=== PATIENT | female | born 1960 | race Caucasian/White ===

== ENCOUNTER 2018-08-17 09:00 | Inpatient (IN) | payer OTHER ==
[~2018-08-17] VITALS: Ht 162.6 cm; Wt 45.8 kg
[2018-08-24] MEDS ORDERED: CEFAZOLIN 1 GM IVPB PREMIX 50 ML IV ONE (07:00)
[2018-08-24] MEDS ORDERED: CEL250 PO (10:57)
[2018-08-24] MEDS ORDERED: OMEP10SU2 PO (10:57)
[2018-08-24] MEDS ORDERED: TACR0.5C PO (10:57)
[2018-08-24] MEDS ORDERED: PRED5TAB PO (10:57)
[2018-08-24] MEDS ORDERED: SERT50TA PO (10:57)
[2018-08-24] MEDS ORDERED: METO50TA7 PO (10:57)
[2018-08-24] MEDS ORDERED: AMLO5TAB4 PO (10:57)
[2018-08-24] MEDS ORDERED: LIP20 PO (10:59)
[2018-08-24] MEDS ORDERED: PROPOFOL 200MG/ 20ML VIAL (DIPRIVAN) IV ONE (12:15)
[2018-08-24] MEDS ORDERED: NS 1000 ML IV.SOLN IV ONE (12:15)
[2018-08-24] MEDS ORDERED: DEXTROSE 50% JECT 50 ML DISP.SYRIN IVP ONE (12:15)
[2018-08-24] MEDS ORDERED: fentaNYL CITRATE/PF 100 MCG/2 ML AMP IVP ONE (12:15)
[2018-08-24] MEDS ORDERED: MIDAZOLAM HCL 5 MG/5 ML VIAL IVP ONE (12:15)
[2018-08-24] MEDS ORDERED: HYDROCORTISONE SOD SUCC 100 MG/2 ML VIAL IVP ONE (12:15)
[2018-08-24] MEDS ORDERED: SEVOFLURANE 15 MIN GAS INH ONE (12:15)
[2018-08-24] MEDS ORDERED: LR 1,000 ML IV.SOLN IV ONE (12:15)
[2018-08-24] MEDS ORDERED: ROCURONIUM BROMIDE 10 MG/ML (ZEMURON) IV ONE (12:15)
[2018-08-24] MEDS ORDERED: BUPIVACAINE /EPINEPHRINE/PF 0.5% 30 ML VIAL INJ ONE (12:15)
[2018-08-24] MEDS ORDERED: CLINDAMYCIN 2% VAGINAL CREAM VG ONE (12:15)
[2018-08-24] MEDS ORDERED: NS IRRIG SOLN 1000 ML IR ONE (12:15)
[2018-08-24] MEDS ORDERED: HYDROCORTISONE SOD SUCC 250 MG/2 ML ONE (12:51)
[2018-08-24] MEDS ORDERED: LR 500 ML IV ONE (13:22)
[2018-08-24] MEDS ORDERED: FENT2mCg/mL-ROPIVA0.2%/NS EPID 200 ML EP SCH (13:30)
[2018-08-24] MEDS ORDERED: fentaNYL CITRATE/PF 100 MCG/2 ML AMP IVP PRN ×2 (13:30)
[2018-08-24] MEDS ORDERED: POLYMYXIN 500,000/BACIT.10,000 UNITS in NS IRR 1 L IR ONE (15:00)
[2018-08-24] MEDS ORDERED: METOCLOPRAMIDE HCL 10 MG/2 ML VIAL IVP ONE (18:00)
[2018-08-24] MEDS ORDERED: METOCLOPRAMIDE HCL 10 MG/2 ML VIAL ONE (18:03)
[2018-08-24 18:30] VITALS: BP_SYST 104
[2018-08-24 19:30] VITALS: BP_SYST 117
[2018-08-24] MEDS: PROGRAF 0.5 MG PO SCH (20:00)
[2018-08-24 20:15] VITALS: BP_SYST 101
[2018-08-24] MEDS: CELLCEPT 250 MG PO SCH (21:00)
[2018-08-24] MEDS: ceFAZolin SODIUM 1 GM in D5W 50 ML IV SCH (21:04)
[2018-08-24] MEDS: KCL 10 mEq in D5/0.45NS 1000mL 1,000 ML IV SCH (21:04)
[2018-08-24] MEDS: SIMETHICONE 80 MG TAB.CHEW PO SCH (21:10)
[2018-08-24] MEDS: LIPITOR 20 MG PO SCH (23:00)
[2018-08-24] MEDS: ZOLOFT 50 MG PO SCH (23:00)
[2018-08-24 23:35] VITALS: BP_SYST 120
[2018-08-25] MEDS: ceFAZolin SODIUM 1 GM in D5W 50 ML IV SCH ×3 (05:29→22:23)
[2018-08-25] MEDS ORDERED: HYDROCORTISONE SOD SUCC 100 MG/2 ML VIAL IVP ONE (06:15)
[2018-08-25 07:12] LABS: ALBUMIN 2.3 g/dL (3.4-4.8); CALCIUM 7.2 mg/dL (8.4-11.0); CREATININE 0.92 mg/dL (0.55-1.30); POTASSIUM 4.1 mmol/L (3.5-5.1); TOTAL BILIRUBIN 0.5 mg/dL (0.0-1.0)
[2018-08-25 08:00] VITALS: BP_SYST 120
[2018-08-25 08:33] LABS: HEMATOCRIT 31.5 % (36-48); HEMOGLOBIN 10.4 g/dL (12.0-16.0); RED BLOOD CELL COUNT(AUTO) 3.62 MIL/uL (4.2-6.2); WHITE BLOOD COUNT (AUTO) 9.2 K/uL (4.8-10.8)
[2018-08-25 08:34] LABS: BASOPHILS % (AUTO) 0.2 % (0.0-2.0); EOSINOPHILS % (AUTO) 0.1 % (0.0-4.0); LYMPHOCYTES % (AUTO) 4.5 % (20.5-51.5); MEAN CORPUSCULAR HEMOGLOBIN 29 pg (27-31); MEAN CORPUSCULAR HGB CONC 33 % (32-36); MEAN CORPUSCULAR VOLUME 87 fL (79.0-98.0); MONOCYTES % (AUTO) 6.1 % (1.7-9.3); NEUTROPHILS # (AUTO) 8.2 K/uL (1.8-7.7); NEUTROPHILS % (AUTO) 89.1 % (40.0-70.0); PLATELET COUNT (AUTO) 205 K/uL (130-430); RED CELL DISTRIBUTION WIDTH 13.9 % (9.0-15.0)
[2018-08-25 08:35] LABS: LYMPHOCYTES # (AUTO) 0.4 K/uL (1.0-5.5); MONOCYTES # (AUTO) 0.6 K/uL (0.0-1.0)
[2018-08-25] MEDS: SIMETHICONE 80 MG TAB.CHEW PO SCH ×4 (09:00→21:00)
[2018-08-25] MEDS: CELLCEPT 250 MG PO SCH ×4 (09:48→21:00)
[2018-08-25] MEDS: KCL 10 mEq in D5/0.45NS 1000mL 1,000 ML IV SCH ×3 (09:48→22:22)
[2018-08-25] MEDS: NORVASC 5 MG PO SCH (09:49)
[2018-08-25] MEDS: TOPROL 50 MG PO SCH (09:50)
[2018-08-25] MEDS: PROGRAF 0.5 MG PO SCH ×2 (09:52→20:00)
[2018-08-25] MEDS: PRILOSEC 40 MG PO SCH (09:53)
[2018-08-25] MEDS: PREDNISONE 5 MG TABLET PO SCH (09:53)
[2018-08-25] MEDS: ONDANSETRON HCL 4 MG/2 ML VIAL IVP PRN (11:17)
[2018-08-25] MEDS: OXYCODONE/ACETAMINOPHEN 5-325 TABLET PO PRN ×2 (11:17→20:31)
[2018-08-25 12:47] VITALS: BP_SYST 135
[2018-08-25 16:02] VITALS: BP_SYST 129
[2018-08-25 20:00] VITALS: BP_SYST 123
[2018-08-25] MEDS: LIPITOR 20 MG PO SCH (22:29)
[2018-08-25] MEDS: ZOLOFT 50 MG PO SCH (22:29)
[2018-08-25 23:47] VITALS: BP_SYST 126
[2018-08-26] MEDS: OXYCODONE/ACETAMINOPHEN 5-325 TABLET PO PRN ×4 (04:36→21:33)
[2018-08-26] MEDS: ceFAZolin SODIUM 1 GM in D5W 50 ML IV SCH ×3 (06:31→21:04)
[2018-08-26 07:49] VITALS: BP_SYST 124
[2018-08-26] MEDS: KCL 10 mEq in D5/0.45NS 1000mL 1,000 ML IV SCH ×2 (08:12→20:16)
[2018-08-26] MEDS: SIMETHICONE 80 MG TAB.CHEW PO SCH ×4 (08:13→20:17)
[2018-08-26] MEDS: TOPROL 50 MG PO SCH (09:00)
[2018-08-26] MEDS: PROGRAF 0.5 MG PO SCH ×2 (09:00→20:27)
[2018-08-26] MEDS: NORVASC 5 MG PO SCH (09:00)
[2018-08-26] MEDS: CELLCEPT 250 MG PO SCH ×4 (09:00→20:27)
[2018-08-26] MEDS: PRILOSEC 40 MG PO SCH (10:00)
[2018-08-26] MEDS: PREDNISONE 5 MG TABLET PO SCH (10:00)
[2018-08-26 12:40] VITALS: BP_SYST 114
[2018-08-26 16:30] VITALS: BP_SYST 123
[2018-08-26 19:46] VITALS: BP_SYST 131
[2018-08-26] MEDS: ACETAMINOPHEN 325 MG TABLET PO PRN (20:18)
[2018-08-26] MEDS: LIPITOR 20 MG PO SCH (22:40)
[2018-08-26] MEDS: ZOLOFT 50 MG PO SCH (22:40)
[2018-08-27] VITALS: BP_SYST 126
[2018-08-27] MEDS: ceFAZolin SODIUM 1 GM in D5W 50 ML IV SCH ×3 (05:48→23:10)
[2018-08-27] MEDS: OXYCODONE/ACETAMINOPHEN 5-325 TABLET PO PRN ×3 (05:48→13:47)
[2018-08-27] MEDS: KCL 10 mEq in D5/0.45NS 1000mL 1,000 ML IV SCH ×2 (05:48→17:42)
[2018-08-27 08:31] VITALS: BP_SYST 116
[2018-08-27] MEDS: NORVASC 5 MG PO SCH (09:00)
[2018-08-27] MEDS: TOPROL 50 MG PO SCH (09:00)
[2018-08-27] MEDS: SIMETHICONE 80 MG TAB.CHEW PO SCH ×4 (09:03→20:26)
[2018-08-27] MEDS: CELLCEPT 250 MG PO SCH ×4 (10:27→20:31)
[2018-08-27] MEDS: PROGRAF 0.5 MG PO SCH ×2 (10:28→20:27)
[2018-08-27] MEDS: PREDNISONE 5 MG TABLET PO SCH (10:31)
[2018-08-27] MEDS: PRILOSEC 40 MG PO SCH (10:32)
[2018-08-27 11:30] VITALS: BP_SYST 127
[2018-08-27] MEDS ORDERED: DOCUSATE SODIUM 100 MG CAPSULE PO ONE (12:45)
[2018-08-27 12:51] LABS: HEMATOCRIT 29.6 % (36-48); HEMOGLOBIN 9.9 g/dL (12.0-16.0); MEAN CORPUSCULAR HEMOGLOBIN 29 pg (27-31); MEAN CORPUSCULAR HGB CONC 34 % (32-36); MEAN CORPUSCULAR VOLUME 86 fL (79.0-98.0); RED BLOOD CELL COUNT(AUTO) 3.44 MIL/uL (4.2-6.2); RED CELL DISTRIBUTION WIDTH 13.7 % (9.0-15.0); WHITE BLOOD COUNT (AUTO) 10.3 K/uL (4.8-10.8)
[2018-08-27 12:52] LABS: PLATELET COUNT (AUTO) 168 K/uL (130-430)
[2018-08-27 13:03] LABS: ALBUMIN 1.7 g/dL (3.4-4.8); CALCIUM 7.7 mg/dL (8.4-11.0); CREATININE 0.87 mg/dL (0.55-1.30); TOTAL BILIRUBIN 0.6 mg/dL (0.0-1.0)
[2018-08-27 14:11] LABS: ATYPICAL LYMPHOCYTES % 0 % (0-0); BAND % (MANUAL) 8 % (0-6); BASOPHILS % (MANUAL) 0 % (0-2); EOSINOPHILS % (MANUAL) 0 % (0-7); LYMPHOCYTES % (MANUAL) 1 % (20-46); MONOCYTES % (MANUAL) 2 % (0-11)
[2018-08-27 15:42] VITALS: BP_SYST 133
[2018-08-27] MEDS: HYDROcodone/ACETAMIN 5-325 MG TAB (NORCO/ VICODIN) PO PRN ×2 (18:32→23:59)
[2018-08-27 19:45] VITALS: BP_SYST 145
[2018-08-27] MEDS: DOCUSATE SODIUM 100 MG CAPSULE PO SCH (20:26)
[2018-08-27] MEDS ORDERED: FAMOTIDINE PF 20 MG/2 ML VIAL IVP ONE (23:00)
[2018-08-27] MEDS ORDERED: CALCIUM CARBONATE 500 MG/ TAB.CHEW PO PRN (23:00)
[2018-08-27] MEDS: ZOLOFT 50 MG PO SCH (23:00)
[2018-08-27] MEDS: LIPITOR 20 MG PO SCH (23:11)
[2018-08-27] MEDS: D5NS 1,000 ML IV SCH (23:24)
[2018-08-28 02:05] VITALS: BP_SYST 142
[2018-08-28] MEDS: HYDROcodone/ACETAMIN 5-325 MG TAB (NORCO/ VICODIN) PO PRN ×3 (03:48→21:00)
[2018-08-28] MEDS: ceFAZolin SODIUM 1 GM in D5W 50 ML IV SCH ×3 (06:17→21:00)
[2018-08-28 08:01] VITALS: BP_SYST 145
[2018-08-28] MEDS: PROGRAF 0.5 MG PO SCH ×2 (09:00→20:54)
[2018-08-28] MEDS: CELLCEPT 250 MG PO SCH ×4 (09:00→20:57)
[2018-08-28] MEDS: TOPROL 50 MG PO SCH (09:00)
[2018-08-28] MEDS: NORVASC 5 MG PO SCH (09:00)
[2018-08-28] MEDS: SIMETHICONE 80 MG TAB.CHEW PO SCH ×4 (09:00→20:56)
[2018-08-28] MEDS: DOCUSATE SODIUM 100 MG CAPSULE PO SCH ×2 (09:07→20:55)
[2018-08-28] MEDS: D5NS 1,000 ML IV SCH ×2 (09:07→19:00)
[2018-08-28] MEDS: FAMOTIDINE PF 20 MG/2 ML VIAL IVP SCH ×2 (09:07→21:06)
[2018-08-28] MEDS: PREDNISONE 5 MG TABLET PO SCH (10:00)
[2018-08-28] MEDS: PRILOSEC 40 MG PO SCH (10:00)
[2018-08-28 11:30] VITALS: BP_SYST 146
[2018-08-28] MEDS: ONDANSETRON HCL 4 MG/2 ML VIAL IVP PRN (13:31)
[2018-08-28] MEDS ORDERED: ALBUMIN HUMAN 5% 500 ML IV ONE (16:00)
[2018-08-28] MEDS ORDERED: METOCLOPRAMIDE HCL 10 MG/2 ML VIAL IVP ONE (16:00)
[2018-08-28 16:47] VITALS: BP_SYST 135
[2018-08-28 19:45] VITALS: BP_SYST 146
[2018-08-28] MEDS: METOCLOPRAMIDE HCL 10 MG/2 ML VIAL IVP SCH (23:46)
[2018-08-28] MEDS: OXYCODONE/ACETAMINOPHEN 5-325 TABLET PO PRN (23:53)
[2018-08-28] MEDS: ZOLOFT 50 MG PO SCH (23:55)
[2018-08-28] MEDS: LIPITOR 20 MG PO SCH (23:55)
[2018-08-29 00:16] VITALS: BP_SYST 155
[2018-08-29] MEDS: D5NS 1,000 ML IV SCH (05:24)
[2018-08-29] MEDS: METOCLOPRAMIDE HCL 10 MG/2 ML VIAL IVP SCH ×3 (05:25→17:05)
[2018-08-29] MEDS: ceFAZolin SODIUM 1 GM in D5W 50 ML IV SCH ×3 (05:25→22:04)
[2018-08-29 07:45] VITALS: BP_SYST 138
[2018-08-29 08:12] LABS: CALCIUM 8.1 mg/dL (8.4-11.0); CREATININE 0.66 mg/dL (0.55-1.30); PHOSPHORUS 4.1 mg/dL (2.7-4.5); POTASSIUM 3.4 mmol/L (3.5-5.1)
[2018-08-29] MEDS: FAMOTIDINE PF 20 MG/2 ML VIAL IVP SCH ×2 (08:36→21:55)
[2018-08-29] MEDS: SIMETHICONE 80 MG TAB.CHEW PO SCH ×4 (08:36→21:55)
[2018-08-29] MEDS: DOCUSATE SODIUM 100 MG CAPSULE PO SCH ×2 (08:36→21:55)
[2018-08-29] MEDS: PROGRAF 0.5 MG PO SCH ×2 (08:40→20:00)
[2018-08-29] MEDS: NORVASC 5 MG PO SCH (08:41)
[2018-08-29] MEDS: TOPROL 50 MG PO SCH (08:42)
[2018-08-29] MEDS: CELLCEPT 250 MG PO SCH ×4 (08:43→21:00)
[2018-08-29] MEDS: PRILOSEC 40 MG PO SCH (10:00)
[2018-08-29] MEDS: PREDNISONE 5 MG TABLET PO SCH (10:00)
[2018-08-29 12:09] VITALS: BP_SYST 148
[2018-08-29] MEDS: OXYCODONE/ACETAMINOPHEN 5-325 TABLET PO PRN ×2 (13:13→21:54)
[2018-08-29 16:00] VITALS: BP_SYST 125
[2018-08-29 20:00] VITALS: BP_SYST 129
[2018-08-29] MEDS ORDERED: PROCHLORPERAZINE MALEATE 10 MG TABLET PO PRN (20:00)
[2018-08-29] MEDS: POTASSIUM CHLORIDE 10 MEQ in NACL 0.9% 1,000 ML IV SCH (20:00)
[2018-08-29] MEDS: ONDANSETRON HCL 4 MG/2 ML VIAL IVP PRN (21:54)
[2018-08-29] MEDS: LIPITOR 20 MG PO SCH ×2 (22:27→23:00)
[2018-08-29] MEDS ORDERED: KCL 20 mEq in 100 mL (PREMIX) 100 ML IV ONE (22:27)
[2018-08-29] MEDS: ZOLOFT 50 MG PO SCH ×2 (22:27→23:00)
[2018-08-30] MEDS: METOCLOPRAMIDE HCL 10 MG/2 ML VIAL IVP SCH ×5 (00:50→23:03)
[2018-08-30] MEDS: LIPITOR 20 MG PO SCH ×2 (00:55→23:02)
[2018-08-30] MEDS: ZOLOFT 50 MG PO SCH ×2 (00:56→23:02)
[2018-08-30 02:20] VITALS: BP_SYST 134
[2018-08-30] MEDS: ceFAZolin SODIUM 1 GM in D5W 50 ML IV SCH ×3 (06:05→23:01)
[2018-08-30 07:45] VITALS: BP_SYST 153
[2018-08-30] MEDS: FAMOTIDINE PF 20 MG/2 ML VIAL IVP SCH ×2 (10:24→23:00)
[2018-08-30] MEDS: DOCUSATE SODIUM 100 MG CAPSULE PO SCH ×2 (10:24→23:00)
[2018-08-30] MEDS: SIMETHICONE 80 MG TAB.CHEW PO SCH ×4 (10:25→23:00)
[2018-08-30] MEDS: CELLCEPT 250 MG PO SCH ×4 (10:26→21:00)
[2018-08-30] MEDS: PROGRAF 0.5 MG PO SCH ×2 (10:27→20:00)
[2018-08-30] MEDS: NORVASC 5 MG PO SCH (10:28)
[2018-08-30] MEDS: TOPROL 50 MG PO SCH (10:29)
[2018-08-30] MEDS: POTASSIUM CHLORIDE 10 MEQ in NACL 0.9% 1,000 ML IV SCH ×2 (10:45→20:03)
[2018-08-30] MEDS: PRILOSEC 40 MG PO SCH (11:42)
[2018-08-30] MEDS: PREDNISONE 5 MG TABLET PO SCH (11:42)
[2018-08-30 12:02] VITALS: BP_SYST 147
[2018-08-30 16:06] VITALS: BP_SYST 139
[2018-08-30 19:00] VITALS: BP_SYST 131
[2018-08-30] MEDS ORDERED: *TPN PER PHARMACY XX PRN (19:15)
[2018-08-30] MEDS ORDERED: MILK OF MAGNESIA 30 ML UDC PO PRN (19:30)
[2018-08-30 23:13] VITALS: BP_SYST 138
[2018-08-31] MEDS ORDERED: HYDROcodone/ACETAMIN 5-325 MG TAB (NORCO/ VICODIN) PO PRN ×2 (01:45→07:15)
[2018-08-31] MEDS ORDERED: HYDROcodone/ACETAMIN 5-325 MG TAB (NORCO/ VICODIN) ONE (02:15)
[2018-08-31] MEDS: METOCLOPRAMIDE HCL 10 MG/2 ML VIAL IVP SCH ×3 (05:56→21:04)
[2018-08-31] MEDS: ceFAZolin SODIUM 1 GM in D5W 50 ML IV SCH (05:56)
[2018-08-31] MEDS: POTASSIUM CHLORIDE 10 MEQ in NACL 0.9% 1,000 ML IV SCH ×4 (05:57→16:32)
[2018-08-31 07:58] LABS: PHOSPHORUS 3.7 mg/dL (2.7-4.5)
[2018-08-31 07:59] LABS: CALCIUM 7.9 mg/dL (8.4-11.0); CREATININE 0.69 mg/dL (0.55-1.30); POTASSIUM 3.7 mmol/L (3.5-5.1)
[2018-08-31 08:13] LABS: ALBUMIN 2.1 g/dL (3.4-4.8); TOTAL BILIRUBIN 1.2 mg/dL (0.0-1.0)
[2018-08-31 08:24] VITALS: BP_SYST 139
[2018-08-31 08:31] LABS: HEMATOCRIT 30.6 % (36-48); HEMOGLOBIN 10.1 g/dL (12.0-16.0); MEAN CORPUSCULAR HEMOGLOBIN 29 pg (27-31); MEAN CORPUSCULAR HGB CONC 33 % (32-36); MEAN CORPUSCULAR VOLUME 87 fL (79.0-98.0); PLATELET COUNT (AUTO) 413 K/uL (130-430); RED BLOOD CELL COUNT(AUTO) 3.53 MIL/uL (4.2-6.2); RED CELL DISTRIBUTION WIDTH 13.5 % (9.0-15.0)
[2018-08-31 08:32] LABS: BASOPHILS % (AUTO) 0.1 % (0.0-2.0); EOSINOPHILS # (AUTO) 0.1 K/uL (0.0-0.4); EOSINOPHILS % (AUTO) 0.5 % (0.0-4.0); LYMPHOCYTES # (AUTO) 0.3 K/uL (1.0-5.5); LYMPHOCYTES % (AUTO) 2.2 % (20.5-51.5); MONOCYTES # (AUTO) 1.1 K/uL (0.0-1.0); NEUTROPHILS # (AUTO) 12.5 K/uL (1.8-7.7); NEUTROPHILS % (AUTO) 89.2 % (40.0-70.0)
[2018-08-31] MEDS: DOCUSATE SODIUM 100 MG CAPSULE PO SCH ×2 (08:36→21:04)
[2018-08-31] MEDS: SIMETHICONE 80 MG TAB.CHEW PO SCH ×5 (08:37→21:04)
[2018-08-31] MEDS: FAMOTIDINE PF 20 MG/2 ML VIAL IVP SCH (08:37)
[2018-08-31] MEDS ORDERED: METOCLOPRAMIDE HCL 10 MG/2 ML VIAL IVP ONE (10:00)
[2018-08-31] MEDS ORDERED: PANTOPRAZOLE SODIUM 40 MG/VIAL (PROTONIX) IVP ONE (10:00)
[2018-08-31 12:00] VITALS: BP_SYST 138
[2018-08-31] MEDS: CELLCEPT 250 MG PO SCH ×3 (14:48→21:13)
[2018-08-31] MEDS: NORVASC 5 MG PO SCH (14:49)
[2018-08-31] MEDS: PREDNISONE 5 MG TABLET PO SCH (14:49)
[2018-08-31] MEDS: PROGRAF 0.5 MG PO SCH ×2 (14:49→21:13)
[2018-08-31] MEDS: TOPROL 50 MG PO SCH (14:49)
[2018-08-31] MEDS: PRILOSEC 40 MG PO SCH (14:55)
[2018-08-31 16:00] VITALS: BP_SYST 158
[2018-08-31] MEDS ORDERED: LUBIPROSTONE 24 MCG CAPSULE PO ONE (17:00)
[2018-08-31] MEDS ORDERED: FAT EMULSIONS 250 ML IV SCH (18:00)
[2018-08-31] MEDS ORDERED: POTASSIUM CHLORIDE IV SCH ×10 (18:00)
[2018-08-31] MEDS ORDERED: SODIUM ACETATE IV SCH ×10 (18:00)
[2018-08-31] MEDS ORDERED: TPN PERIPHERAL IV SCH ×10 (18:00)
[2018-08-31] MEDS ORDERED: [UNRECOGNIZED DRUG - OTHER] IV SCH ×10 (18:00)
[2018-08-31 20:00] VITALS: BP_SYST 120
[2018-08-31] MEDS: PANTOPRAZOLE SODIUM 40 MG/VIAL (PROTONIX) IVP SCH (21:03)
[2018-08-31] MEDS: LUBIPROSTONE 24 MCG CAPSULE PO SCH (21:03)
[2018-08-31] MEDS: ZOLOFT 50 MG PO SCH (23:48)
[2018-08-31] MEDS: LIPITOR 20 MG PO SCH (23:50)
[2018-09-01 00:57] VITALS: BP_SYST 136
[2018-09-01] MEDS: METOCLOPRAMIDE HCL 10 MG/2 ML VIAL IVP SCH ×3 (07:28→21:24)
[2018-09-01 08:00] VITALS: BP_SYST 137
[2018-09-01 08:26] LABS: ALBUMIN 1.7 g/dL (3.4-4.8); CALCIUM 7.3 mg/dL (8.4-11.0); CREATININE 0.59 mg/dL (0.55-1.30); PHOSPHORUS 2.2 mg/dL (2.7-4.5); POTASSIUM 3.2 mmol/L (3.5-5.1); TOTAL BILIRUBIN 0.7 mg/dL (0.0-1.0)
[2018-09-01] MEDS: SIMETHICONE 80 MG TAB.CHEW PO SCH ×4 (09:00→21:00)
[2018-09-01] MEDS: CELLCEPT 250 MG PO SCH ×4 (09:00→21:31)
[2018-09-01] MEDS: TOPROL 50 MG PO SCH ×2 (09:00→13:00)
[2018-09-01] MEDS: PROGRAF 0.5 MG PO SCH ×2 (09:00→21:31)
[2018-09-01] MEDS: PRILOSEC 40 MG PO SCH ×2 (10:00→13:00)
[2018-09-01] MEDS: PREDNISONE 5 MG TABLET PO SCH ×2 (10:00→13:00)
[2018-09-01] MEDS: POTASSIUM CHLORIDE 10 MEQ in NACL 0.9% 1,000 ML IV SCH (10:03)
[2018-09-01] MEDS: LUBIPROSTONE 24 MCG CAPSULE PO SCH ×2 (10:11→21:00)
[2018-09-01] MEDS: DOCUSATE SODIUM 100 MG CAPSULE PO SCH ×2 (10:11→21:23)
[2018-09-01] MEDS: PANTOPRAZOLE SODIUM 40 MG/VIAL (PROTONIX) IVP SCH ×2 (10:12→21:23)
[2018-09-01 12:11] VITALS: BP_SYST 146
[2018-09-01] MEDS: NORVASC 5 MG PO SCH (13:00)
[2018-09-01 16:10] VITALS: BP_SYST 132
[2018-09-01] MEDS ORDERED: [UNRECOGNIZED DRUG - OTHER] IV SCH ×10 (18:00)
[2018-09-01] MEDS ORDERED: POTASSIUM CHLORIDE 10 MEQ in NACL 0.9% 1,000 ML IV SCH (18:00)
[2018-09-01] MEDS ORDERED: TPN PERIPHERAL IV SCH ×10 (18:00)
[2018-09-01] MEDS ORDERED: SODIUM ACETATE IV SCH ×10 (18:00)
[2018-09-01] MEDS ORDERED: POTASSIUM CHLORIDE IV SCH ×10 (18:00)
[2018-09-01] MEDS: LIPITOR 20 MG PO SCH (21:32)
[2018-09-01] MEDS: ZOLOFT 50 MG PO SCH (21:33)
[2018-09-02 00:35] VITALS: BP_SYST 131
[2018-09-02] MEDS: ACETAMINOPHEN 325 MG TABLET PO PRN ×2 (01:43→10:05)
[2018-09-02] MEDS: METOCLOPRAMIDE HCL 10 MG/2 ML VIAL IVP SCH (06:05)
[2018-09-02 07:23] LABS: ALBUMIN 1.9 g/dL (3.4-4.8); CALCIUM 7.4 mg/dL (8.4-11.0); CREATININE 0.49 mg/dL (0.55-1.30); PHOSPHORUS 2.6 mg/dL (2.7-4.5); TOTAL BILIRUBIN 0.7 mg/dL (0.0-1.0)
[2018-09-02 07:49] LABS: POTASSIUM 2.7 mmol/L (3.5-5.1)
[2018-09-02 08:00] VITALS: BP_SYST 144
[2018-09-02] MEDS: DOCUSATE SODIUM 100 MG CAPSULE PO SCH (09:52)
[2018-09-02] MEDS: CELLCEPT 250 MG PO SCH ×2 (09:52→13:01)
[2018-09-02] MEDS: LUBIPROSTONE 24 MCG CAPSULE PO SCH (09:52)
[2018-09-02] MEDS: PANTOPRAZOLE SODIUM 40 MG/VIAL (PROTONIX) IVP SCH (09:52)
[2018-09-02] MEDS: SIMETHICONE 80 MG TAB.CHEW PO SCH ×2 (09:52→13:00)
[2018-09-02] MEDS: NORVASC 5 MG PO SCH (09:53)
[2018-09-02] MEDS: PROGRAF 0.5 MG PO SCH (09:53)
[2018-09-02] MEDS ORDERED: POTASSIUM CHLORIDE 20 MEQ TAB.PRT.SR PO ONE ×2 (10:15→12:45)
[2018-09-02 12:25] VITALS: BP_SYST 122
[2018-09-02 13:03] VITALS: BP_SYST 122
== END 2018-09-02 13:14 | disposition home or self-care (01) | DRG 742 ==
LOC: SDS 08-24 10:17 → SMU 08-24 10:18 → EDSTATUS 08-24 12:30 → SMU 08-24 18:45 → STU 08-24 18:45 → UNDOFXSDCACCOM 08-24 18:45 → UNDOFXSDCSVC 08-24 18:45 → STU 08-24 19:59 → SMU 08-25 23:27
PROVIDERS: ADMIT Specialist; ATTEND Specialist
PROC: 0UT9FZZ Resection of Uterus, Via Natural or Artificial Opening With Percutaneous Endoscopic Assistance (ICD-10-PCS; principal; 2018-08-25)
PROC: 0UT2FZZ Resection of Bilateral Ovaries, Via Natural or Artificial Opening With Percutaneous Endoscopic Assistance (ICD-10-PCS; 2018-08-25)
PROC: 0USG8ZZ Reposition Vagina, Via Natural or Artificial Opening Endoscopic (ICD-10-PCS; 2018-08-25)
PROC: 0UT7FZZ Resection of Bilateral Fallopian Tubes, Via Natural or Artificial Opening With Percutaneous Endoscopic Assistance (ICD-10-PCS; 2018-08-25)
PROC: 0JQC0ZZ Repair Pelvic Region Subcutaneous Tissue and Fascia, Open Approach (ICD-10-PCS; 2018-08-25)
PROC: 0JQC0ZZ Repair Pelvic Region Subcutaneous Tissue and Fascia, Open Approach (ICD-10-PCS; 2018-08-25)
PROC: 0QU10JZ Supplement Sacrum with Synthetic Substitute, Open Approach (ICD-10-PCS; 2018-08-25)
PROC: 8E0W4CZ Robotic Assisted Procedure of Trunk Region, Percutaneous Endoscopic Approach (ICD-10-PCS; 2018-08-25)
DX: N81.6 Rectocele (principal); E43 Unspecified severe protein-calorie malnutrition; Q61.3 Polycystic kidney, unspecified; K56.7 Ileus, unspecified; Z94.0 Kidney transplant status; E87.1 Hypo-osmolality and hyponatremia; N81.10 Cystocele, unspecified; I15.9 Secondary hypertension, unspecified; E83.51 Hypocalcemia; K59.00 Constipation, unspecified; K21.9 Gastro-esophageal reflux disease without esophagitis; I10 Essential (primary) hypertension; D63.8 Anemia in other chronic diseases classified elsewhere
CPT/HCPCS: 36415; 74018; 80048; 80053; 82962; 83735-TC; 84100-TC; 84478-TC; 85007; 85025; 85027; 87081; 88305; 88307; 97110-GP; 97530-GP; C1727; C1781; C9113; G0378; J0690; J1720; J2250; J2405; J2704; J2765; J3010; J3475; J3480; J3490; J7030; J7042; J7060; J7120; J7131; P9041; Q0164

== ENCOUNTER 2018-09-11 06:28 | Emergency (ER) | payer OTHER ==
[~2018-09-11] VITALS: Ht 162.6 cm; Wt 45.4 kg
[~2018-09-11 06:28] MED LIST: AMLO5TAB4 PO; CEL250 PO; LIP20 PO; METO50TA7 PO; OMEP10SU2 PO; PRED5TAB PO; SERT50TA PO; TACR0.5C PO
[2018-09-11 07:00] VITALS: BP_SYST 126
[2018-09-11] MEDS ORDERED: ASPI-1153 PO (07:13)
[2018-09-11] MEDS ORDERED: SERT50TA PO (07:13)
[2018-09-11] MEDS ORDERED: CHOL100024 PO (07:13)
[2018-09-11] MEDS ORDERED: MYCO500T PO (07:13)
[2018-09-11 08:00] LABS: BASOPHILS # (AUTO) 0.1 K/uL (0.0-0.2); BASOPHILS % (AUTO) 0.3 % (0.0-2.0); EOSINOPHILS # (AUTO) 0.1 K/uL (0.0-0.4); EOSINOPHILS % (AUTO) 0.6 % (0.0-4.0); HEMATOCRIT 28.6 % (36-48); HEMOGLOBIN 9.3 g/dL (12.0-16.0); LYMPHOCYTES # (AUTO) 0.8 K/uL (1.0-5.5); LYMPHOCYTES % (AUTO) 4.2 % (20.5-51.5); MEAN CORPUSCULAR HEMOGLOBIN 28 pg (27-31); MEAN CORPUSCULAR HGB CONC 33 % (32-36); MEAN CORPUSCULAR VOLUME 86 fL (79.0-98.0); MONOCYTES % (AUTO) 5.4 % (1.7-9.3); NEUTROPHILS # (AUTO) 16.8 K/uL (1.8-7.7); NEUTROPHILS % (AUTO) 89.5 % (40.0-70.0); PLATELET COUNT (AUTO) 569 K/uL (130-430); RED BLOOD CELL COUNT(AUTO) 3.31 MIL/uL (4.2-6.2); RED CELL DISTRIBUTION WIDTH 13.9 % (9.0-15.0); WHITE BLOOD COUNT (AUTO) 18.8 K/uL (4.8-10.8)
[2018-09-11 08:03] LABS: CALCIUM 8.4 mg/dL (8.4-11.0); CREATININE 0.77 mg/dL (0.55-1.30); POTASSIUM 3.8 mmol/L (3.5-5.1)
[2018-09-11 08:08] LABS: ALBUMIN 2.5 g/dL (3.4-4.8); PROTHROMBIN TIME 10.3 SECS (9.5-12.5); TOTAL BILIRUBIN 0.2 mg/dL (0.0-1.0)
[2018-09-11 08:13] LABS: BILIRUBIN,URINE NEGATIVE (NEGATIVE); BLOOD, URINE 3+ (NEGATIVE); COLOR,URINE YELLOW (YELLOW); GLUCOSE,URINE NEGATIVE (NEGATIVE); KETONES,URINE NEGATIVE (NEGATIVE); LEUKOCYTE ESTERASE ,URINE 2+ (NEGATIVE); NITRITE, URINE NEGATIVE (NEGATIVE); PH,URINE 5.5 (5.0-8.0); PROTEIN URINE 1+ (NEGATIVE); UROBILINOGEN,URINE 0.2 (0.2-1.0)
[2018-09-11 08:15] LABS: CLARITY/URINE SLIGHTLY HAZY (CLEAR)
[2018-09-11] MEDS ORDERED: NACL 0.9% 1,000 ML IV ONE (08:18)
[2018-09-11 08:24] LABS: BACTERIA,URINE MODERATE /HPF (None Seen); WBC,URINE 20-50 /HPF (0-3)
[2018-09-11 08:25] LABS: MUCUS,URINE 1+ /LPF (None Seen)
[2018-09-11] MEDS ORDERED: cefTRIAXone 1 GM in D5W 50 ML IV ONE (08:45)
[2018-09-11] MEDS ORDERED: ACETAMINOPHEN 325 MG TABLET PO ONE (08:45)
[2018-09-11] MEDS ORDERED: cefTRIAXone 1 GM VIAL ONE (08:53)
[2018-09-11 09:24] VITALS: BP_SYST 126
== END 2018-09-11 09:24 | disposition home or self-care (01) ==
LOC: SED 06:28
DX: N99.89 Other postprocedural complications and disorders of genitourinary system (principal); N39.0 Urinary tract infection, site not specified; Z79.82 Long term (current) use of aspirin; Z79.899 Other long term (current) drug therapy
CPT/HCPCS: 36415; 74176; 80053; 81000; 84484; 83605; 85025; 85610; 85730; 87040; 87086; 93005; 96365; 99284; J0696; J7030

== ENCOUNTER 2019-03-29 06:10 | Day surgery (SDC) | payer OTHER ==
[~2019-03-29] VITALS: Ht 162.6 cm; Wt 52.2 kg
[~2019-03-29 06:10] MED LIST changes: +ASPI-1153 PO; -CEL250 PO; +CHOL100024 PO; +MYCO500T PO
[2019-03-29] MEDS ORDERED: CEFAZOLIN SOD 1 GM in D5W 50 ML IV ONE (07:00)
[2019-03-29] MEDS ORDERED: ONDANSETRON HCL 4 MG/2 ML VIAL IVP ONE (07:45)
[2019-03-29] MEDS ORDERED: LIDOCAINE/EPI 1% 1:100000 20 ML VIAL INJ ONE (07:45)
[2019-03-29] MEDS ORDERED: fentaNYL CITRATE/PF 100 MCG/2 ML AMP IVP ONE (07:45)
[2019-03-29] MEDS ORDERED: SEVOFLURANE 15 MIN GAS INH ONE (07:45)
[2019-03-29] MEDS ORDERED: PROPOFOL 200MG/ 20ML VIAL (DIPRIVAN) IV ONE (07:45)
[2019-03-29] MEDS ORDERED: MIDAZOLAM HCL 5 MG/5 ML VIAL IVP ONE (07:45)
[2019-03-29] MEDS ORDERED: BUPIVACAINE LIPOSOME/PF 266 MG/20 ML VIAL INFIL ONE (08:33)
[2019-03-29] MEDS ORDERED: HYDROcodone/ACETAMIN 5-325 MG TAB (NORCO/ VICODIN) PO PRN (08:45)
[2019-03-29] MEDS ORDERED: OXYCODONE/ACETAMINOPHEN 5-325 TABLET PO PRN (08:45)
[2019-03-29] MEDS ORDERED: ONDANSETRON HCL 4 MG/2 ML VIAL IM PRN (08:45)
[2019-03-29] MEDS ORDERED: ONDANSETRON HCL 4 MG/2 ML VIAL IVP PRN (09:15)
[2019-03-29] MEDS ORDERED: fentaNYL CITRATE/PF 100 MCG/2 ML AMP IVP PRN ×2 (09:15)
[2019-03-29] MEDS ORDERED: fentaNYL CITRATE/PF 100 MCG/2 ML AMP ONE (09:37)
[2019-03-29 11:02] VITALS: BP_SYST 134
== END 2019-03-29 11:00 | disposition home or self-care (01) ==
LOC: SDS 06:10 → SMU 06:10 → SDS 11:00
PROVIDERS: ATTEND Specialist
DX: K43.2 Incisional hernia without obstruction or gangrene (principal); I10 Essential (primary) hypertension; Z94.0 Kidney transplant status; Z90.710 Acquired absence of both cervix and uterus
CPT/HCPCS: 49654; 88302; C9290; J0690; J2250; J2405; J2704; J3010; J7060; J7120